=== PATIENT | male | born 1950 | race Caucasian/White ===

== ENCOUNTER → 2021-02-16 09:06 | Outpatient (CLI) | payer MEDICARE, BC, SELFPAY ==
[2021-02-17 03:58] LABS: SARS-CoV-2 RNA PCR Positive
== END ==
PROVIDERS: PCP Family Medicine; Visit Provider Family Medicine
DX: U07.1 COVID-19 (principal); J06.9 Acute upper respiratory infection, unspecified
CPT/HCPCS: C9803; U0003; U0005

== ENCOUNTER 2021-02-18 08:32 | Outpatient (RCR) | payer MEDICARE, BC, SELFPAY ==
[2021-02-18 16:33] VITALS: BP 143/66; PULSE 84; RESP 20; TEMP 37; O2SAT 99
[2021-02-18] MEDS: ACETAMINOPHEN 325 MG TABLET 650 MG PO (16:38)
[2021-02-18] MEDS: diphenhydrAMINE HCl CAP 25 MG CAPSULE PO (16:38)
[2021-02-18] MEDS: FAMOTIDINE 20 MG TABLET PO (16:39)
[2021-02-18 17:37] VITALS: BP 132/67
== END 2021-02-18 16:00 ==
LOC: AMCINF 08:32
PROVIDERS: PCP Family Medicine; Visit Provider Internal Medicine Hematology & Oncology
DX: U07.1 COVID-19 (principal); E11.9 Type 2 diabetes mellitus without complications
CPT/HCPCS: A9270; M0243; Q0244

== ENCOUNTER 2021-02-20 20:04 | Emergency (ER) | payer MEDICARE, BC, SELFPAY ==
[2021-02-20 20:12] VITALS: BP 159/78; PULSE 65; RESP 18; TEMP 36.6; O2SAT 100
--- NOTE | 2021-02-20 20:35 | PC.NURSE ---
Pt ambulatory to intake desk; requesting to leave. verbalized understanding that he could return at any time. Reports swelling he felt in mouth is now gone. speech clear. a/o x 4.
== END 2021-02-21 04:02 | disposition left against medical advice (07) ==
LOC: ANHED 20:44
PROVIDERS: PCP Family Medicine
DX: Z53.21 Procedure and treatment not carried out due to patient leaving prior to being seen by health care provider (principal)
CPT/HCPCS: 99199

== ENCOUNTER 2022-03-30 10:20 | Outpatient (CLI) | payer MEDICARE, BC, SELFPAY ==
[2022-03-30 10:59] LABS: Anion Gap 6 mmol/L (8-16); Blood Urea Nitrogen 15 mg/dL (9-20); Calcium 8.6 mg/dL (8.4-10.2); Carbon Dioxide 28 mmol/L (22-30); Chloride 101 mmol/L (98-107); Estimated Glomerular Filt Rate > 60; Glucose 164 mg/dL (65-110); Potassium 3.8 mmol/L (3.4-5.0); Sodium 135 mmol/L (137-145)
== END 2022-03-30 10:21 | disposition home or self-care (01) ==
PROVIDERS: Anesthesiology; PCP Family Medicine; Visit Provider Surgery
DX: K40.90 Unilateral inguinal hernia, without obstruction or gangrene, not specified as recurrent (principal); E11.9 Type 2 diabetes mellitus without complications
CPT/HCPCS: 36415; 80048; 86850; 86900; 86901

== ENCOUNTER 2022-04-05 00:58 | Day surgery (SDC) | payer MEDICARE, BC, SELFPAY ==
[2022-03-22 15:17] VITALS: BMI 24.4
--- NOTE | 2022-03-22 15:27 | PC.NURSE ---
PRE-OP INSTRUCTIONS, PLEASE READ CAREFULLY Report to the Outpatient Waiting Room, entrance under the green pavilion located off [facility], at time _0600_ on date _04/05/22_. Planned Procedure Time: _0730_. Time changes happen often and if your time is changed the preop area will call you the afternoon before. - You and your visitor will be asked to self-screen and do not enter if you have any COVID symptoms. - Only one visitor is requested with a max of two and NO children visitors are allowed at this time. - The patient visitor may be requested to leave or wait in car when not with patient due to distancing restrictions. - A mask is optional within the hospital at this time. Patients may have clear liquids (water, carbonated beverages, clear teas, apple juice) until 3 hours prior to surgery (0430 AM) with a maximum of 20 ounces. - No food from midnight until time of surgery Take the following medications with a SIP of water the morning of surgery: _NONE_ DO NOT STOP ANY OF YOUR OTHER PRESCRIPTION MEDICATIONS PRIOR TO SURGERY ?EXCEPT THE FOLLOWING Medications to discontinue per ANESTHESIA - _PROBIOTIC, MULTIVITAMIN 3 DAYS PRIOR TO SURGERY, Date to take last dose 04/01/22_ Please no make-up, nail yoruba, hairspray, perfume, deodorant, or body powder the day of surgery. No jewelry (including any body piercings) or valuables the day of surgery, leave them at home. Please take a shower or bath the night before, or the morning of, surgery with an antibacterial soap. Wear comfortable, loose fitting clothing. - Jewelry must be removed prior to entering the operating room. Rings and piercings that are not removed may be cut off. - The hospital will not accept responsibility for valuables. - Please leave all valuables, including medications, at home the day of surgery. If you are going home after surgery, a licensed shuttle van driver must drive you home. - NO public transportation without another adult if you receive anesthesia. - We recommend that an adult stay with you for 24 hours following discharge. - We also recommend that you do not drive, make important decision, drink alcoholic beverages, or take any drugs that were not prescribed by your health care provider for at least 24 hours after your discharge time. Follow any additional instructions given to you from your surgeon. If you or anyone in your household have experienced Covid symptoms in the past week, please notify your surgeon or the nurse liaison at the phone number below for possible testing. Telephone instructions given to __PATIENT__and asked if any additional questions and then verbalized understanding. Patient advised to call surgeon office or pre surgery nurse liaison [phone] if any additional questions.
--- NOTE | 2022-04-04 15:27 | P.PNAN_ITS ---
Anes - Initial Pre Proc Eval Procedure: Operation Date: 04/05/22 07:30 Proposed Procedures p Laparoscopic Right Inguinal Hernia Repair with Mesh, Davinci Assisted - Alfred Gandara DO Date/Time: 04/04/22 15:27 Surgeon: Alfred Gandara DO Pre Op Diagnosis: Rt Ing Hernia Patient Data Age: 72 Gender: M Height: 1.68 m Weight: 68.63 kg Allergies Allergy/AdvReac Type Severity Reaction Status Date / Time ezetimibe [From Zetia] Allergy Severe Swelling, Verified 04/05/22 07:01 THROAT, FACE Contrast Media Allergy Mild RED LINE Uncoded 03/22/22 15:12 ON ARM, FEVER Home Medications Medication Instructions Recorded Confirmed Type aspirin 81 mg tablet,delayed 162 mg PO DAILY 02/18/21 03/22/22 History release (Eriberto Low Dose Aspirin) atorvastatin 80 mg tablet (Lipitor) 80 mg PO DAILY 02/18/21 03/22/22 History lisinopril 2.5 mg tablet 2.5 mg PO DAILY 02/18/21 03/22/22 History Lactobacillus acidophilus 10 10,000 mmu cells PO DAILY 02/04/22 03/22/22 History billion cell capsule (Probiotic) esomeprazole magnesium 40 mg 40 mg PO DAILY 02/04/22 03/22/22 History capsule,delayed release pediatric multivitamin (Gummi Bear 1 tablet PO DAILY 02/04/22 03/22/22 History Multivitamin chewable tablet) psyllium 1 packet PO BID 03/22/22 03/22/22 History metformin 500 mg tablet 500 mg PO DAILY #90 tabs 03/25/22 Rx Patient hx anesthesia problems: none Family hx anesthesia problems: none Results Review: All pre-operative results and documents have been reviewed as part of the pre- operative evaluation. [facility] Past Medical History Medical History BPH (benign prostatic hyperplasia) Coronary artery disease Diabetes type 2, controlled Hyperlipidemia Hypertension Surgical History Surgical History History of cholecystectomy Hx of CABG Social History Social History Smoking status: Never smoker Second hand tobacco smoke exposure: No Alcohol intake: never Substance use: never Substance use type: does not use Living arrangements: alone Spiritual care concerns: No Anes - Eval Final PreProcedure Day of Procedure 04/04/22 15:27 Patient weight: normal Heart: regular rate and rhythm Lungs: clear to auscultation and normal air movement Airway: Mallampati scale class II Neurological: alert and oriented Last oral intake: >/= 8 hours ASA classification: III Emergent: no Anesthetic plan: proceed Anesthesia type and monitoring: general ETT Results Review: All pre-operative results and documents have been reviewed as part of the pre- operative evaluation. Informed Consent: The patient's anesthetic plan and its attendant risks and benefits were discussed with the patient/family/POA. Questions were solicited and answers provided to the satisfaction of the patient/family/POA.
[2022-04-05] VITALS (14 sets, daily range): BP systolic 117–151; BP diastolic 49–87; PULSE 43–60; RESP 13–18; TEMP 36.6–36.9; O2SAT 99–100
[2022-04-05] MEDS: LACTATED RINGERS 1,000 ML 30 ML IV CONT ×3 (06:45→11:35)
[2022-04-05] MEDS: KETOROLAC 15 MG/ML VIAL (*BKC) IV PUSH (06:46)
[2022-04-05] MEDS: ACETAMINOPHEN 500 MG TABLET 1000 MG PO (06:46)
[2022-04-05 06:50] LABS: Glucose Point of Care 125 mg/dl (65-105)
--- NOTE | 2022-04-05 07:20 | WPDHPUPDATE1 ---
History and Physical Update Update Date/Time: 04/05/22 07:20 History and Physical has been reviewed, including an updated exam of the patient. There are NO changes in the patient's condition. Risks, benefits, and alternatives have been discussed and questions answered. Patient agrees to proceed with procedure.
--- NOTE | 2022-04-05 07:20 | PM.IMHP ---
H&P: HPI History of Present Illness Date/Time: 04/05/22 07:20 Chief Complaint: right inguinal hernia Narrative: 72 yo man presents for right inguinal hernia repair. He reports no changes since seen in office. Review of Systems Review of Systems: All systems reviewed & are unremarkable except as noted in HPI and below Constitutional: Constitutional: Denies chills, Denies fever(s), Denies headache(s) and Denies weight loss Eyes: Eyes: Denies change in vision ENT: Denies dizziness, Denies headache(s), Denies neck mass and Denies throat swelling Cardiovascular: Cardiovascular: Denies chest pain, Denies lightheadedness and Denies dyspnea Respiratory: Respiratory: Denies cough, Denies dyspnea and Denies wheezing Gastrointestinal: Gastrointestinal: Denies abdominal pain, Denies change in bowel habits, Denies nausea and Denies vomiting Genitourinary: Genitourinary: Denies hematuria and Denies dysuria Musculoskeletal: Musculoskeletal: Reports as per HPI Integumentary/Breasts: Skin/Breast: Reports as per HPI Neurologic: Denies dizziness and Denies headache(s) Allergic/Immunologic: Allergic/Immunologic: Denies throat swelling and Denies wheezing [facility] Past Medical History Medical History BPH (benign prostatic hyperplasia) Coronary artery disease Diabetes type 2, controlled Hyperlipidemia Hypertension Surgical History Surgical History History of cholecystectomy Hx of CABG Social History Social History Smoking status: Never smoker Second hand tobacco smoke exposure: No Alcohol intake: never Substance use: never Substance use type: does not use Living arrangements: alone Spiritual care concerns: No Meds Home Medications and Allergies Home Medications Medication Instructions Recorded Confirmed Type aspirin 81 mg tablet,delayed 162 mg PO DAILY 02/18/21 03/22/22 History release (Eriberto Low Dose Aspirin) atorvastatin 80 mg tablet (Lipitor) 80 mg PO DAILY 02/18/21 03/22/22 History lisinopril 2.5 mg tablet 2.5 mg PO DAILY 02/18/21 03/22/22 History Lactobacillus acidophilus 10 10,000 mmu cells PO DAILY 02/04/22 03/22/22 History billion cell capsule (Probiotic) esomeprazole magnesium 40 mg 40 mg PO DAILY 02/04/22 03/22/22 History capsule,delayed release pediatric multivitamin (Gummi Bear 1 tablet PO DAILY 02/04/22 03/22/22 History Multivitamin chewable tablet) psyllium 1 packet PO BID 03/22/22 03/22/22 History metformin 500 mg tablet 500 mg PO DAILY #90 tabs 03/25/22 Rx Allergies Allergy/AdvReac Type Severity Reaction Status Date / Time ezetimibe [From Zetia] Allergy Severe Swelling, Verified 04/05/22 07:01 THROAT, FACE Contrast Media Allergy Mild RED LINE Uncoded 03/22/22 15:12 ON ARM, FEVER Vital Signs Vital Signs - 24 hr 04/05/22 05:58 Temperature 36.9 C Pulse Rate 58 L Respiratory Rate 18 Blood Pressure 144/62 H Pulse Oximetry 100 Oxygen Delivery Room Air Exam Const: General: no acute distress and alert Orientation/consciousness: patient oriented x3 HENMT: Head: normocephalic and atraumatic Ears: hearing grossly normal bilaterally Face/Nose/Sinus: Normal nares present Mouth: Yes Normal oral and palatal mucosa present Eyes: Periorbital: periorbital findings normal Sclera: sclerae normal EOM: EOMs intact bilaterally Neck: Neck: normal visual inspection, no lymphadenopathy and trachea midline Chest: Chest palpation & inspection: normal inspection of the chest Resp: Effort & Inspection: normal respiratory effort Auscultation: clear to auscultation bilaterally Cardio: Jugular venous distension: no JVD Rate: regular rate Rhythm: regular rhythm Heart sounds: S1 normal heart sound present and S2 normal heart sound present Peripheral pulses: Peripheral pulses 2+ throughout G
[2022-04-05] MEDS: ceFAZolin 2 GM/D5W 50 ML 2 GM/50 ML BAG IVPB (07:27)
[2022-04-05] MEDS: BUPIVACAINE/EPINEPHRINE 0.5% 10 ML VIAL 30 ML INFILTRATE (07:51)
--- NOTE | 2022-04-05 08:34 | W.PM.PROC2 ---
Procedure Note - Detailed Date of Procedure 04/05/22 Pre-op Diagnosis Right inguinal hernia Post-op Diagnosis Same (Indirect RIH) Procedure Performed Laparoscopic right inguinal hernia repair with mesh, da Schuyler assisted Surgeon Alfred Gandara, Anesthesia General and Local (0.5% bupivacaine with epinephrine) Indications This is a 72-year-old man who presented with a right groin bulge and findings of a right inguinal hernia on physical exam. He has been experiencing pain in the right groin with activity for the past 2 months. Discussions were made with the patient about treatment options and decision was made to proceed with robotic assisted laparoscopic right inguinal hernia repair with mesh. Findings Laparoscopic right inguinal hernia repair was performed. The patient was found and indirect right inguinal hernia. There was no evidence left inguinal hernia. A robotic transabdominal preperitoneal approach was utilized for repair of the right inguinal hernia. Once a wide enough preperitoneal pocket was created, I placed a large right 3DMax mid mesh overlying the entire right myopectineal orifice. No specimens were obtained for pathology. Description of Procedure Procedure as well as risks, benefits, and alternatives were discussed with the patient. Written consent was obtained and placed in chart prior to procedure. Patient was brought back to surgical suite. He was placed supine on operating table. Time-out was done to confirm patient and procedure. He was then intubated by Anesthesia Department. His abdomen was prepped and draped in sterile fashion using chlorhexidine prep. 0.5% bupivacaine with epinephrine was infiltrated at each location for incision. A 12 millimeter transverse incision was made just superior to the umbilicus using a 15 blade scalpel. Blunt dissection was carried out down to the linea alba. A vertical incision was made at the linea alba using a 15 blade scalpel. The peritoneum was then bluntly entered. A 12 millimeter trocar was inserted and carbon dioxide insufflation was used to create a pneumoperitoneum. A camera was inserted and the abdominal cavity was inspected. The patient was placed in slight Trendelenburg position. An 8 millimeter incision was made on the right lateral abdomen and an 8 millimeter trocar was inserted under direct visualization. Another 8 millimeter incision was made in the left lateral abdomen and an 8 millimeter trocar was inserted under direct visualization. The robotic arms were brought up to the patient's bedside and secured to the ports. The camera and instruments were inserted. I then moved over to the robotic console and took control of the camera and instruments. After careful inspection of the abdominal cavity, I began scoring the peritoneum along the right lower quadrant using scissors with electrocautery. The preperitoneal plane was entered and this was carefully dissected caudally along the inferior epigastric vessels. Careful dissection with scissors with electrocautery and blunt dissection was used to continue this dissection. I dissected far enough laterally to allow for mesh placement, and also dissected medially to identify the pubic arch and Tavares's ligament. The hernia sac was identified and carefully dissected posteriorly. The cord contents were also identified and the peritoneum was carefully dissected far enough posteriorly to allow for mesh placement. Once an adequate pocket was created, I then placed the mesh within the preperitoneal pocket and carefully unfolded it. The mesh was centered on the hernia defect with adequate overlap circumferentially. The inferior edge of the mesh was inspected to ensure that it was far enough away from the peritoneal edge. The mesh appeared in proper position overlying the entire myopectineal orifice. The mesh was secured using 3-0 Vicryl simple interrupted sutures in Tavares's ligament, the superior medial edge, and superior lateral edge
[2022-04-05 08:57] LABS: Glucose Point of Care 149 mg/dl (65-105)
--- NOTE | 2022-04-05 09:07 | SUR.PHASEI ---
0905: Simple mask removed.
[2022-04-05] MEDS: ONDANSETRON INJ 4 MG/2 ML VIAL IV PUSH (10:42)
--- NOTE | 2022-04-05 10:50 | SUR.PHASEII ---
DRINKING LOTS OF WATER. NO URGE TO URINATE YET.
--- NOTE | 2022-04-05 12:50 | SUR.PHASEII ---
BLADDER SCANNER SHOWED 423 ML URINE. PT STATES HE FEELS LIKE HE HAS A FULL BLADDER. DR. SURESH AWARE; INSTRUCTED TO WAIT 30 MINUTES AND HAVE PATIENT TRY AGAIN.
--- NOTE | 2022-04-05 14:35 | SUR.PHASEII ---
1400 DR. SURESH NOTIFIED THAT PATIENT UNABLE TO VOID; INSTRUCTED TO PLACE WOMACK CATHETER AND TO MAINTAIN IT AT HOME UNTIL MONDAY WHEN PATIENT WILL HAVE IT REMOVED AT THE OFFICE.
== END 2022-04-05 14:40 | disposition home or self-care (01) ==
PROVIDERS: PCP Family Medicine; Visit Provider Surgery
PROC: 8E0Y4CZ Robotic Assisted Procedure of Lower Extremity, Percutaneous Endoscopic Approach (ICD-10-PCS; CPT 49650; principal; 2022-04-05 07:30)
DX: K40.90 Unilateral inguinal hernia, without obstruction or gangrene, not specified as recurrent (principal); I10 Essential (primary) hypertension; E78.5 Hyperlipidemia, unspecified; E11.9 Type 2 diabetes mellitus without complications; I25.10 Atherosclerotic heart disease of native coronary artery without angina pectoris; N40.0 Benign prostatic hyperplasia without lower urinary tract symptoms; Z79.84 Long term (current) use of oral hypoglycemic drugs; Z79.82 Long term (current) use of aspirin; Z95.1 Presence of aortocoronary bypass graft
CPT/HCPCS: 49650; S2900; 82948; A9270; C1781; J0690; J1100; J1170; J1885; J2250; J2405; J2704; J2710; J3010; J7030; J7120

== ENCOUNTER 2022-12-20 10:38 | Outpatient (CLI) | payer MEDICARE, BC, SELFPAY ==
--- NOTE | ~2022-12-20 | XR_ITS ---
XR wrist LT w scaphoid DATE: 12/20/2022 10:58 INDICATION: Fall one month ago. Lateral wrist pain. TECHNIQUE: 4 views of left wrist COMPARISON: None FINDINGS: There is mild osteoarthritis at the first carpometacarpal joint. No fracture or dislocation, periosteal reaction or bone destruction, erosive change or chondrocalcino sis is detected. IMPRESSION: No fracture or dislocation is detected Mild osteoarthritis at first carpometacarpal joint Reviewed, dictated and finalized at location L.
== END 2022-12-20 10:39 | disposition home or self-care (01) ==
PROVIDERS: PCP Family Medicine; Visit Provider Family Medicine
DX: M19.032 Primary osteoarthritis, left wrist (principal); S69.92XA Unspecified injury of left wrist, hand and finger(s), initial encounter
CPT/HCPCS: 73110

== ENCOUNTER 2023-09-20 15:10 | Outpatient (CLI) | payer MEDICARE, BC, SELFPAY ==
--- NOTE | ~2023-09-20 | CT_ITS ---
CT abdomen pelvis wo/w con Ordering provider: Dat Coppola MD History: . blood in urine . Comparison: July 06, 2016 Technique: CT abdomen with IV and without oral contrast. Radiation reduction technique utilized. DLP is 1334.81 mGy-cm. 100 mL Omnipaque 350 was given IV. Findings: VISUALIZED LOWER CHEST: Normal. UPPER ABDOMINAL ORGANS: Liver: Normal. Gallbladder: Status post cholecystectomy. Spleen: Normal. Stomach/duodenum: Normal. Pancreas: Normal. Adrenals: Normal. Kidneys: Normal. VISUALIZED BOWEL AND MESENTERY: No evidence of diverticulitis. Normal appendix. The bowel is otherwis e normal. No free air or free fluid. No mesenteric lymphadenopathy. RETROPERITONEUM: Mild atheromatous disease of the abdominal aorta. No retroperitoneal lymphadenopathy . MUSCULOSKELETAL: Fat containing left inguinal hernia is noted. Otherwise, The superficial soft tissue s are normal. Age appropriate degenerative changes of the spine. Bilateral sacroiliacs. Pubic symphys itis. IMPRESSION: No evidence of diverticulitis, appendicitis or intestinal obstruction. No renal stones. Left inguinal fat containing hernia. Reviewed, dictated and finalized at location A.
== END 2023-09-20 15:11 | disposition home or self-care (01) ==
LOC: ANHIMG 15:13
PROVIDERS: PCP Family Medicine; Visit Provider Family Medicine
DX: K40.90 Unilateral inguinal hernia, without obstruction or gangrene, not specified as recurrent (principal); R31.9 Hematuria, unspecified
CPT/HCPCS: 74178; Q9967

== ENCOUNTER 2024-07-23 00:20 | Day surgery (SDC) | payer MEDICARE, BC, SELFPAY ==
[2024-06-25 14:45] VITALS: BMI 26.9
--- OUTSIDE RECORDS SUMMARY | 2024-07-03 00:05 | XMS_ITS | Referral Summary ---
Author Organization [facility] [id number] Address [address] [place] [address] Care Team Providers Care Box Toe Maker Name Role Phone Dat Coppola MD Primary Care Provider [phone] Allergies Active Allergy Reactions Criticality Noted Date Comments Iodinated Contrast Media Rash Medium 09/09/2019 Ezetimibe Angioedema High 09/15/2021 Medications atorvastatin (LIPITOR) 80 mg tablet take 1 tablet by oral route every day 0 0 5 Active aspirin (ASPIR-81) 81 mg tablet take 2 tablet by oral route every day 0 0 5 Active lisinopril (PRINIVIL,ZESTR IL) 2.5 mg tablet take 1 tablet by oral route every day 0 0 5 Active metFORMIN (GLUCOPHAGE) 500 mg tablet Take 1 tablet (500 mg total) by mouth daily with breakfast Active esomeprazole DR (NexIUM) 20 mg capsule Take 2 capsules (40 mg total) by mouth daily before breakfast Active acidophilus-pec tin, citrus 100 million cell-10 mg capsule Take by mouth Activ e ferrous fumarate 324 mg (106 mg iron) tablet Take by mouth Active Active Problems Problem Noted Date Diagnosed Date Abnormal stress test 02/22/2023 Preoperative cardiovascular examination 03/22/19 23 Medication side effects 09/15/2021 Allergic drug reaction 09/15/2021 Sick sinus syndrome 12/06/2016 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 Overview (05/26/2016): Erectile dysfunction, unspecified erectile dysfunction type Hypertension associated with diabetes 06/01/2015 Overview (05/27/2016): HTN (hypertension), benign Mixed diabetic hyperlipidemi a associated with type 2 diabetes mellitus ([facility]) 06/01/2015 Overview (05/27/2016): DM type 2 with diabetic dyslipidemia Bradycardia 09/09/2014 Overview (05/26/2016): Bradycardia Postoperative atrial fibrillation 08/11/2014 Overview (05/26/2016): Paroxysmal atrial fibrillation Diabetes mellitus 08/11/2014 Overview (05/26/2016): DM (diabetes mellitus) Coronary artery disease invo lving barrow coronary artery of barrow heart without angina pectoris 08/11/2014 Overview (05/26/2016): CAD (coronary artery disease) Old myocardial infarction 08/11/2014 Overview (05/26/2016): Status post myocardial infarction History of coronary artery bypass surgery 2014 Overview (05/26/2016): S/P CABG x 2 Resolved Problems Problem Noted Date Diagnosed Date Resolved Date Dyslipidemia 08/11/2014 03/11/2021 Overview (05/26/2016): Dyslipidemia Social History Tobacco Use Types Packs/Day Years Used Date Smoking Tobacco: Never Smokeless Tobacco: Never Tobacco Cessation:Counseling Given: Not Answered Alcohol Use Standard Drinks/Week Comments Yes 0 (1 standard drink = 0.6 oz pur e alcohol) Sex and Gender Information Value Date Recorded Sex Assigned at Not on file Legal Sex Male 4:34 AM K 9 HANDLER/ DEPUTY Gender Identity Not on file Sexual Orientation Not on file Last Filed Vital Signs Vital Sign Reading Time Taken Comments Blood Pressure 108/60 02/23/2024 10:42 AM K 9 HANDLER/ DEPUTY Pulse 55 02/23/2024 10:42 AM K 9 HANDLER/ DEPUTY Temperature - - Respiratory Rate - - Oxygen Saturation 96% 02/23/2024 10:42 AM K 9 HANDLER/ DEPUTY Inhaled Oxygen Concentration - - Weight 75.8 kg (167 lb) 02/23/2024 10:42 AM K 9 HANDLER/ DEPUTY Height 167.6 cm (5' 6) 02/23/2024 10:42 AM K 9 HANDLER/ DEPUTY Body Mass Index 26.95 02/23/2024 10:42 AM K 9 HANDLER/ DEPUTY Plan of Treatment Not on file Procedures Procedure Name Priority Date/Time Associated Diagnosis Comments POCT LIPID PANEL Routine 02/23/2024 10:4 7 AM K 9 HANDLER/ DEPUTY Lipid screening from Last 3 Months or Most Recently Relevant to Health Maintenance Results * POCT lipid panel (02/23/2024 10:47 AM K 9 HANDLER/ DEPUTY) Cholesterol, POC 116 mg/dL HDL, POC 29 mg/dL Triglycerides, POC 232 mg/dL LDL Cholesterol POC 41 mg/dL Chol/HDL Ratio, POC 1.4 Non-HDL Cholesterol, POC 87 mg/dL Cholesterol Total, POC 116 mg/dL Capillary blood 02/23/2024 1 0:47 AM K 9 HANDLER/ DEPUTY Ana Maria Layton NP POINT OF CARE TEST ORDERA BLES Final Result from Last 3 Months or Most Recently Relevant to Health Maintenance Insurance MEDICARE [facility] Address: [facility] [address] [place] [address] [employer] MED[employer] [facility] Care Teams Box Toe Maker Relationship Specialty Start Date End Date Dat Coppola MD [address] [place] [address] GIOVANY GOSS [id number] PCP - General 06/01/15
--- OUTSIDE RECORDS SUMMARY | 2024-07-03 00:05 | XMS_ITS | Clinical Summary ---
Author Organization [facility] [address] Address [address] [place] [address] Care Team Providers Care Mental Health Coordinator Name Role Phone Dat Coppola MD Primary Care Provider [phone] Allergies Active Allergy Reactions Criticality Noted Date [...] a associated with type 2 diabetes mellitus ([facility]/HCC) 06/01/2015 Overview (05/27/2016): DM type 2 with diabetic dyslipidemia Bradycardia 09/09/2014 Overview (05/26/2016): Bradycardia Postoperative atrial fibrillation 08/11/2014 Overview (05/26/2016): Paroxysmal atrial fibrillation Diabetes mellitus 08/11/2014 Overview (05/26/2016): DM (diabetes mellitus) Coronary artery disease invo lving [place] coronary artery of [place] heart without angina pectoris 08/11/2014 Overview (05/26/2016): CAD (coronary artery disease) Old myocardial infarction 08/11/2014 Overview (05/26/2016): Status post myocardial infarction History of coronary artery bypass surgery 2014 Overview (05/26/2016): S/P CABG x 2 Resolved Problems Problem Noted Date Diagnosed Date Resolved Date Dyslipidemia 08/11/2014 03/11/2021 Overview (05/26/2016): Dyslipidemia Surgical History Surgery Date Site/Laterality Comments CORONARY ARTERY BYPASS GRAFT Medical History Medical History Date Comments Hypertension Coronary artery disease Bradycardia Myocardial infarction (HCC) Family History Medical History Relation Name Comments Heart disease Brother Heart disease; Kidney failure Father kidney failur e; Cancer Mother Cancer, unknown ; Cause of : Cancer, unknown Relation Name Status Comments Brother Father Mother (Age 67) Social History Tobacco Use Types Packs/Day Years Used Date Smoking Tobacco: Never Smokeless Tobacco: Never Tobacco Cessation:Counseling Given: Not Answered Alcohol Use Standard Drinks/Week Comments Yes 0 (1 standard drink = 0.6 oz pur e alcohol) Sex and Gender Information Value Date Recorded Sex Assigned at Not on file 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 Gender Identity Not on file Sexual Orientation Not on file Obstetrics History Last Filed Vital Signs Vital Sign Reading Time Taken Comments Blood Pressure 108/60 02/23/2024 10:42 AM CHIEF DEVELOPMENT OFFICER Pulse 55 02/23/2024 10:42 AM CHIEF DEVELOPMENT OFFICER Temperature - - Respiratory Rate - - Oxygen Saturation 96% 02/23/2024 10:42 AM CHIEF DEVELOPMENT OFFICER Inhaled Oxygen Concentration - - Weight 75.8 kg (167 lb) 02/23/2024 10:42 AM CHIEF DEVELOPMENT OFFICER Height 167.6 cm (5' 6) 02/23/2024 10:42 AM CHIEF DEVELOPMENT OFFICER Body Mass Index 26.95 02/23/2024 10:42 AM CHIEF DEVELOPMENT OFFICER Plan of Treatment Health Maintenance Due Date Last Done Comments Albumin Creatinine Ratio, Urine 1949 Colon Cancer Screening-Colonoscopy 1949 Depression Screening 1949 Fall Risk Assessment 1949 Hemoglobin A1C 1949 Hepatitis C Screening 1949 eGFR 1949 Dilated Eye Exam 1949 Foot Exam 1949 DTaP/Tdap/Td Vaccine (1 - Tdap) 01/27/1960 Hepatitis B Screening 1967 Pneumococcal vaccine 65+ (1 of 2 - PCV) 01/27/1968 Well Visit 65+ 2014 Zoster Vaccine (2 of 2) 09/26/2023 08/01/2023 Influenza Vaccine (Season Ended) 2024 01/21/20 18 Lipid Panel 02/22/2025 02/23/2024, 02/22, 03/26/2021, Additional history exists Procedures Procedure Name Priority Date/Time Associated Diagnosis Comments POCT LIPID PANEL Routine 02/23/2024 10:4 7 AM CHIEF DEVELOPMENT OFFICER Lipid screening from Last 3 Months or Most Recently Relevant to Health Maintenance Results * POCT lipid panel (02/23/2024 10:47 AM CHIEF DEVELOPMENT OFFICER) Cholesterol, POC 116 mg/dL HDL, POC 29 mg/dL Triglycerides, POC 232 mg/dL LDL Cholesterol POC 41 mg/dL Chol/HDL Ratio, POC 1.4 Non-HDL Cholesterol, POC 87 mg/dL Cholesterol Total, POC 116 mg/dL Capillary blood 02/23/2024 1 0:47 AM CHIEF DEVELOPMENT OFFICER Ana Maria Layton NP POINT OF CARE TEST ORDERA BLES Final Result from Last 3 Months or Most Recently Relevant to Health Maintenance Insurance MEDICARE [employer] [facility] Address: [address] [place] [address] MEDICARE [employer] Address: [address] [place] [address] Care Teams Mental Health Coordinator Relationship Specialty Start Date End Date Dat Coppola MD [address] [place] [address] GIOV[place] GOSS [id number] PCP - General 06/01/15
[2024-07-17 16:03] VITALS: BMI 26.9
--- OUTSIDE RECORDS SUMMARY | 2024-07-23 00:24 | XMS_ITS | Clinical Summary ---
Author Organization [facility] [address] Address [address] [place] [address] Care Team Providers Care Link Trainer Operator Name Role Phone Dat Coppola MD Primary Care Provider [phone] Allergies Active Allergy Reactions Criticality Noted Date [...] mg iron) tablet Take by mouth Active predniSONE (DELTASONE) 10 mg tabletIndicatio ns:Coronary artery disease involving [place] coronary artery of [place] heart without angina pectoris 3 tabs 12 hrs prior to the exam then 3 tabs 2 hrs prior to the exam 6 tablet 5 Active Active Problems Problem Noted Date Diagnosed Date Abnormal stress test 02/22/2023 Preoperative cardiovascular examination 03/22/19 23 Medication side effects 09/15/2021 Allergic drug reaction 09/15/2021 Sick sinus syndrome 12/06/2016 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 Overview (05/26/2016): Erectile dysfunction, unspecified erectile dysfunction type Hypertension associated with diabetes 06/01/2015 Overview (05/27/2016): HTN (hypertension), benign Mixed diabetic hyperlipidemi a associated with type 2 diabetes mellitus ([facility]/HCC) 06/01/2015 Overview (05/27/2016): DM type 2 with diabetic dyslipidemia Bradycardia 09/09/2014 Overview (05/26/2016): Bradycardia Postoperative atrial fibrillation 08/11/2014 Overview (05/26/2016): Paroxysmal atrial fibrillation Diabetes mellitus 08/11/2014 Overview (05/26/2016): DM (diabetes mellitus) Coronary artery disease invo lving [place] coronary artery of [place] heart without angina pectoris 08/11/2014 Overview (05/26/2016): CAD (coronary artery disease) Old myocardial infarction 08/11/2014 Overview (05/26/2016): Status post myocardial infarction History of coronary artery bypass surgery 2014 Overview (05/26/2016): S/P CABG x 2 Resolved Problems Problem Noted Date Diagnosed Date Resolved Date Dyslipidemia 08/11/2014 03/11/2021 Overview (05/26/2016): Dyslipidemia Encounters Date Type Department Care Team Description 07/03/2024 8:30 AM CDT Office Visit [facility] Cardiology [address] [place] [phone] Kim Pino NP Coronary artery disease involving [place] coronary artery of [place] heart without angina pectoris (Primary Dx); Hypertension associated with diabetes ([facility]); Mixed diabetic hyperlipidemia associated with type 2 diabetes mellitus (CMS/HCC) (HCC); Sick sinus syndrome (HCC) from Last 3 Months Surgical History Surgery Date Site/Laterality Comments CORONARY [...] on file 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 Gender Identity Not on file Sexual Orientation Not on file Obstetrics History Last Filed Vital Signs Vital Sign Reading Time Taken Comments Blood Pressure 134/76 07/03/2024 8:16 AM CDT Pulse 75 07/03/2024 8:16 AM CDT Temperature - - Respiratory Rate 14 07/03/2024 8:16 AM CDT Oxygen Saturation 95% 07/03/2024 8:16 AM CDT Inhaled Oxygen Concentration - - Weight 73.5 kg (162 lb) 07/03/2024 8:16 AM CDT Height 167.6 cm (5' 6) 07/03/2024 8:16 AM CDT Body Mass Index 26.15 07/03/2024 8:16 AM CDT Plan of Treatment Health Maintenance Due Date [...] Procedure Name Priority Date/Time Associated Diagnosis Comments ELECTROCARDIOGRAM REPORT Routine 025 4:26 PM CDT Coronary artery disease involving [place] coronary artery of [place] heart without angina pectoris POCT LIPID PANEL Routine 02/23/2024 10:4 7 AM TIRE BUILDER OPERATOR Lipid screening from Last 3 Months or Most Recently Relevant to Health Maintenance Results * Electrocardiogram Report (07/03/2024 4:26 PM CDT) Kim Pino NP ECG ORDERABLES Final Result * POCT lipid panel (02/23/2024 10:47 AM TIRE BUILDER OPERATOR) Cholesterol, POC 116 mg/dL HDL, POC 29 mg/dL Triglycerides, POC 232 mg/dL LDL Cholesterol POC 41 mg/dL Chol/HDL Ratio, POC 1.4 Non-HDL Cholesterol, POC 87 mg/dL Cholesterol Total, POC 116 mg/dL Capillary blood 02/23/2024 1 0:47 AM TIRE BUILDER OPERATOR Ana Maria Layton NP POINT OF CARE TEST ORDERA BLES Final Result from Last 3 Months or Most Recently Relevant to Health Maintenance Insurance MEDICARE [employer] MEDICARE [employer] Care Teams Link Trainer Operator Relationship Specialty Start Date End Date Dat Coppola MD [address] [place] [address] PCP - General 06/01/15
--- OUTSIDE RECORDS SUMMARY | 2024-07-23 00:24 | XMS_ITS | Referral Summary ---
Author Organization [facility] [address] Address [address] [place] [address] Care Team Providers Care Associate Professor Of Education Name Role Phone Dat Coppola MD Primary Care Provider [phone] Encounters Date Type Department Care Team Description 07/03/2024 8:30 AM CDT Office Visit [facility] Cardiology [address] [place] [phone] Kim Pino NP Coronary artery disease involving [place] coronary artery of [place] heart without angina pectoris (Primary Dx); Hypertension associated with diabetes (HCC); Mixed diabetic hyperlipidemia associated with type 2 diabetes mellitus (CMS/HCC) (HCC); Sick sinus syndrome (HCC) from Last 3 Months Allergies Active Allergy Reactions Criticality Noted Date [...] 10 mg tabletIndicatio ns:Coronary artery disease involving [place] coronary artery of [place] heart without angina pectoris 3 tabs 12 [...] a associated with type 2 diabetes mellitus ([facility]) 06/01/2015 Overview (05/27/2016): DM type 2 with diabetic dyslipidemia Bradycardia 09/09/2014 Overview (05/26/2016): Bradycardia Postoperative atrial fibrillation 08/11/2014 Overview (05/26/2016): Paroxysmal atrial fibrillation Diabetes mellitus 08/11/2014 Overview (05/26/2016): DM (diabetes mellitus) Coronary artery disease invo lving [place] coronary artery of [place] heart without angina pectoris 08/11/2014 Overview (05/26/2016): [...] on file 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 Gender Identity Not on file Sexual Orientation [...] 07/03/2024 8:16 AM CDT Plan of Treatment Not on file Procedures Procedure Name Priority Date/Time Associated Diagnosis Comments ELECTROCARDIOGRAM REPORT Routine 025 4:26 PM CDT Coronary artery disease involving [place] coronary artery of [place] heart without angina pectoris POCT LIPID PANEL Routine 02/23/2024 10:4 7 AM MANAGER COMMERCIAL REAL ESTATE Lipid screening from Last 3 Months or Most Recently Relevant to Health Maintenance Results * Electrocardiogram Report (07/03/2024 4:26 PM CDT) Kim Pino NP ECG ORDERABLES Final Result * POCT lipid panel (02/23/2024 10:47 AM MANAGER COMMERCIAL REAL ESTATE) Cholesterol, POC 116 mg/dL HDL, POC 29 mg/dL Triglycerides, POC 232 mg/dL LDL Cholesterol POC 41 mg/dL Chol/HDL Ratio, POC 1.4 Non-HDL Cholesterol, POC 87 mg/dL Cholesterol Total, POC 116 mg/dL Capillary blood 02/23/2024 1 0:47 AM MANAGER COMMERCIAL REAL ESTATE Ana Maria Layton NP POINT OF CARE TEST ORDERA BLES Final Result from Last 3 Months or Most Recently Relevant to Health Maintenance Insurance MEDICARE [facility] Address: [address] [address] [employer] [facility] MEDICARE [employer] Care Teams Associate Professor Of Education Relationship Specialty Start Date End Date Dat Coppola MD [address] [place] [address] PCP - General 06/01/15
[2024-07-23 08:41] VITALS: BP 166/64; PULSE 66; RESP 18; TEMP 36.1; O2SAT 99; BMI 26.6
[2024-07-23] MEDS: LACTATED RINGERS 1,000 ML 150 ML IV CONT (08:50)
--- NOTE | 2024-07-23 09:08 | P.PNAN_ITS ---
Anes - Initial Pre Proc Eval Procedure: Operation Date: 07/23/24 10:00 Proposed Procedures p Colonoscopy - Bon Dumont MD Date/Time: 07/23/24 09:08 Surgeon: Bon Dumont MD Pre Op Diagnosis: Other fecal abnormalities Patient Data Age: 74 Gender: M Height: 1.68 m Weight: 75 kg Last Vital Signs Temp 36.1 C L 07/23/24 08:41 Pulse 66 07/23/24 08:41 Resp 18 07/23/24 08:41 BP 166/64 H 07/23/24 08:41 Pulse Ox 99 07/23/24 08:41 O2 Del Method Room Air 07/23/24 08:41 Allergies Allergy/AdvReac Type Severity Reaction Status Date / Time ezetimibe (From Zetia) Allergy Severe Swelling, Verified 07/23/24 08:40 THROAT, FACE Contrast Media Allergy Mild RED LINE Uncoded 07/23/24 08:40 ON ARM, FEVER Home Medications ?Medication ?Instructions ?Recorded ?Confirmed ?Type aspirin 81 mg tablet,delayed 162 mg PO DAILY 02/18/21 07/23/24 History release (Eriberto Low Dose Aspirin) pediatric multivitamin (Gummi Bear 1 tablet PO DAILY 02/04/22 07/23/24 History Multivitamin chewable tablet) atorvastatin 80 mg tablet (Lipitor) 80 mg PO DAILY #90 tabs 04/11/24 07/23/24 Rx lisinopril 2.5 mg tablet 2.5 mg PO DAILY #90 tabs 05/20/24 07/23/24 Rx metformin 500 mg tablet 500 mg PO BID #180 tabs 05/20/24 07/23/24 Rx Patient hx anesthesia problems: none Family hx anesthesia problems: none Results Review: All pre-operative results and documents have been reviewed as part of the pre- operative evaluation. [facility] Past Medical History Medical History Diarrhea, unspecified Gastro-esophageal reflux disease without esophagitis Pure hypercholesterolemia, unspecified Type 2 diabetes mellitus with diabetic neuropathy, unspecified BPH (benign prostatic hyperplasia) Coronary artery disease Hyperlipidemia Surgical History Surgical History S/P right inguinal hernia repair s/p lap right inguinal hernia repair with mesh, da Schuyler assisted 04/05/22 History of cholecystectomy Hx of CABG 06/2014 Family History Family History Mother Cancer Social History Social History Smoking status: Never smoker Second hand tobacco smoke exposure: No Alcohol intake: never Alcohol use details: occasionally Substance use: never Substance use type: does not use Do You Feel Safe in your Home?: Yes Lack of Transportation: No Lack of Food: Never True Current Housing: I Have Housing Concerned About Future Housing: No Difficulty Paying Gas/Electric Bills: No Difficulty Paying for Meds: No Currently Unemployed: No Education: High School Diploma/GED Difficulty w/ Childcare or Family Care: No Living arrangements: alone Occupation/Education: retired Gender identity (if verbalized by the patient): Male Sexual Orientation (if Verbalized by the Patient): Straight or Heterosexual Spiritual care concerns: No Anes - Eval Final PreProcedure Day of Procedure 07/23/24 09:08 Patient weight: overweight Heart: regular rate and rhythm Lungs: clear to auscultation Airway: Mallampati scale class II Neurological: alert and oriented Last oral intake: >/= 8 hours ASA classification: III Emergent: no Anesthetic plan: proceed Anesthesia type and monitoring: general GIVS and standard monitoring Results Review: All pre-operative results and documents have been reviewed as part of the pre- operative evaluation. Informed Consent: The patient's anesthetic plan and its attendant risks and benefits were discussed with the patient/family/POA. Questions were solicited and answers provided to the satisfaction of the patient/family/POA.
[2024-07-23 09:34] LABS: Glucose Point of Care 118 mg/dl (65-105)
--- NOTE | 2024-07-23 09:52 | P.HP_ITS ---
H&P: HPI History of Present Illness Date/Time: 07/23/24 09:52 Chief Complaint: Positive Cologuard test Narrative: the patient has been referred for the finding of positive Cologuard test. His last colonoscopy was about 8 years ago, he is not sure if polyps were found Or not. Review of Systems Review of Systems: All systems reviewed & are unremarkable except as noted in HPI and below PMFSH Past Medical History Medical History Diarrhea, unspecified Gastro-esophageal reflux disease without esophagitis Pure hypercholesterolemia, unspecified Type 2 diabetes mellitus with diabetic neuropathy, unspecified BPH (benign prostatic hyperplasia) Coronary artery disease Hyperlipidemia Surgical History Surgical History S/P right inguinal hernia repair s/p lap right inguinal hernia repair with mesh, da Schuyler assisted 04/05/22 History of cholecystectomy Hx of CABG 06/2014 Family History Family History Mother Cancer Social History Social History Smoking status: Never smoker Second hand tobacco smoke exposure: No Alcohol intake: never Alcohol use details: occasionally Substance use: never Substance use type: does not use Do You Feel Safe in your Home?: Yes Lack of Transportation: No Lack of Food: Never True Current Housing: I Have Housing Concerned About Future Housing: No Difficulty Paying Gas/Electric Bills: No Difficulty Paying for Meds: No Currently Unemployed: No Education: High School Diploma/GED Difficulty w/ Childcare or Family Care: No Living arrangements: alone Occupation/Education: retired Gender identity (if verbalized by the patient): Male Sexual Orientation (if Verbalized by the Patient): Straight or Heterosexual Spiritual care concerns: No Meds Home Medications and Allergies Home Medications ?Medication ?Instructions ?Recorded ?Confirmed ?Type aspirin 81 mg tablet,delayed 162 mg PO DAILY 02/18/21 07/23/24 History release (Eriberto Low Dose Aspirin) pediatric multivitamin (Gummi Bear 1 tablet PO DAILY 02/04/22 07/23/24 History Multivitamin chewable tablet) atorvastatin 80 mg tablet (Lipitor) 80 mg PO DAILY #90 tabs 04/11/24 07/23/24 Rx lisinopril 2.5 mg tablet 2.5 mg PO DAILY #90 tabs 05/20/24 07/23/24 Rx metformin 500 mg tablet 500 mg PO BID #180 tabs 05/20/24 07/23/24 Rx Allergies Allergy/AdvReac Type Severity Reaction Status Date / Time ezetimibe (From Zetia) Allergy Severe Swelling, Verified 07/23/24 08:40 THROAT, FACE Contrast Media Allergy Mild RED LINE Uncoded 07/23/24 08:40 ON ARM, FEVER Vital Signs Vital Signs - 24 hr 07/23/24 08:41 Temperature 97 F L Pulse Rate 66 Respiratory Rate 18 Blood Pressure 166/64 H Pulse Oximetry 99 Oxygen Delivery Room Air Exam Const: General: cooperative and healthy appearing Resp: Effort & Inspection: normal respiratory effort and able to speak in complete sentences Auscultation: clear to auscultation bilaterally Cardio: Rate: regular rate Rhythm: regular rhythm GI: Inspection: normal to inspection GI Palp: No No hepatosplenomegaly present Auscultation: normal bowel sounds Rectal Exam: deferred Skin: General skin exam: normal color Psych: Appearance: grossly normal Mental Status: mental status grossly n ormal Assessment and Plan Assessment and plan (1) Positive colorectal cancer screening using Cologuard test: Code(s): R19.5 - Other fecal abnormalities Status: Acute Assessment and Plan: The patient is deemed a good candidate for the procedure. Consent signed. Will proceed.
[2024-07-23 10:25] VITALS: BP 108/60; PULSE 64; RESP 22; O2SAT 96
[2024-07-23 10:35] VITALS: BP 102/59; PULSE 58; RESP 22; O2SAT 96
[2024-07-23 10:45] VITALS: BP 112/62; PULSE 60; RESP 17; O2SAT 96
== END 2024-07-23 11:00 | disposition home or self-care (01) ==
PROVIDERS: PCP Family Medicine; Referring Provider Family Medicine; Visit Provider Internal Medicine Gastroenterology
PROC: 0DJD8ZZ Inspection of Lower Intestinal Tract, Via Natural or Artificial Opening Endoscopic (ICD-10-PCS; CPT 45378; principal; 2024-07-23 10:00)
DX: K64.8 Other hemorrhoids (principal); K57.30 Diverticulosis of large intestine without perforation or abscess without bleeding; K21.9 Gastro-esophageal reflux disease without esophagitis; E78.00 Pure hypercholesterolemia, unspecified; E11.40 Type 2 diabetes mellitus with diabetic neuropathy, unspecified; N40.0 Benign prostatic hyperplasia without lower urinary tract symptoms; I25.10 Atherosclerotic heart disease of native coronary artery without angina pectoris; Z79.82 Long term (current) use of aspirin; Z79.84 Long term (current) use of oral hypoglycemic drugs; Z98.890 Other specified postprocedural states; Z90.49 Acquired absence of other specified parts of digestive tract; Z95.1 Presence of aortocoronary bypass graft; Z80.9 Family history of malignant neoplasm, unspecified
CPT/HCPCS: 45378; 82948; J2003; J2704; J7120